=== PATIENT | male | born 1985 | race Caucasian/White ===

== ENCOUNTER 2018-01-02 16:40 | Emergency (ER) | payer MEDICAID | END 2018-01-02 20:46 | disposition home or self-care (01) | LOC: E/R 20:46 | DX: S60.031A Contusion of right middle finger without damage to nail, initial encounter (principal); S61.202A Unspecified open wound of right middle finger without damage to nail, initial encounter; W50.0XXA Accidental hit or strike by another person, initial encounter; Y92.9 Unspecified place or not applicable | CPT/HCPCS: 73130; 73130-RT; 99284-25 ==